=== PATIENT | female | born 2000 | race Two or more races ===

== ENCOUNTER 2024-08-28 21:37 | Inpatient (IN) | payer MEDICAID, SELFPAY ==
[2024-08-28] VITALS (20 sets, daily range): BP systolic 122–137; BP diastolic 71–86; PULSE 72–92; RESP 16–99; TEMP 36.9; O2SAT 94–99; BMI 34.4
[2024-08-29] VITALS (121 sets, daily range): BP systolic 92–172; BP diastolic 55–100; PULSE 57–87; RESP 14–18; TEMP 36.8–37.2; O2SAT 91–100
--- NOTE | 2024-08-29 00:06 | XR_ITS ---
Examination: age limited TECHNIQUE: Limited transabdominal sonographic images pelvis Date and time: August 29, 2024, 0027 hours INDICATIONS: Unknown presentation. FINDINGS: Viable uterine gestation cephalic presentation. spine maternal left. Cardiac motion 135 BPM. IMPRESSION: Viable intrauterine gestation cephalic presentation
[2024-08-29 00:07] LABS: Basophils # (Auto) 0.0 Thou/mm3 (0.0-0.2); Basophils % (Auto) 0 % (0-2.5); Eosinophils # (Auto) 0.0 Thou/mm3 (0.0-0.5); Eosinophils % (Auto) 0 % (0-10); Hematocrit 34.2 % (36.0-46.0); Hemoglobin 12.1 g/dL (12.0-16.0); Immature Granulocytes Auto 0.07 Thou/mm3 (0.00-0.00); Lymphocytes # (Auto) 1.9 Thou/mm3 (1.0-4.8); Lymphocytes % (Auto) 20 % (10-50); Mean Corpuscular HGB Conc 35.4 g/dl (31.0-37.0); Mean Corpuscular Hemoglobin 30.0 pg (25.0-35.0); Mean Corpuscular Volume 85 fL (80-100); Monocytes # (Auto) 0.6 Thou/mm3 (0.0-0.8); Monocytes % (Auto) 6 % (0-12); Neutrophils # (Auto) 6.8 Thou/mm3 (1.8-7.7); Neutrophils % (Auto) 72 % (37-80); Nucleated Red Blood Cell # 0.00 Thou/mm3 (0.00-0.00); Nucleated Red Blood Cell % 0 /100 WBC (0); Platelet Count 227 Thou/mm3 (140-440); RDW Standard Deviation 41.8 fL (36.4-46.3); Red Blood Count 4.03 Miln/mm3 (4.00-5.20); White Blood Count 9.4 Thou/mm3 (3.6-11.0)
[2024-08-29] MEDS: fentaNYL CIT INJ 50 mCg/ML AMP 2ML 100 MCG IVP (00:27)
[2024-08-29 01:18] LABS: Syphilis Nonreactive (Nonreactive)
--- NOTE | 2024-08-29 01:31 | PRELIM_ITS ---
Obstetric ultrasound with Doppler. August 29, 2024 at 0027 hours Clinical history: presentation. Comparison: None. Findings: There is a gravid uterus with a live fetus in cephalic with spine to the maternal left presentation. The placenta is anterior in location. cardiac activity is present at a heart rate of 135 beats per minute. Impression: Gravid uterus with a single live fetus in cephalic with spine to the maternal left presentation. Report Electronically Signed By: Tarik Tracy 08/29/2024 1:31:25 AM [EST]
--- NOTE | 2024-08-29 02:00 | PD.LDHP ---
Documentation for date of: 08/29/24 OB Labor/Induct. HPI History of Present Illness Chief complaint: 24 y/o 39w 1d presents to L&D at 5 cm in labor : 2 Para: 1 Term pregnancies: 1 pregnancies: 0 Living children: 1 History of Abortions: Spontaneous and Elective: 0 History of Vaginal deliveries: 1 History of sections: No History of : No [place]: 09/04/24 Gestational Age (weeks): 39 Gestational Age (days): 1 History of present illness: 24 y/o 39w 1d presents to L&D at 5 cm/70/-2 vertex with spontaneous rupture of membranes. GBS is neg. has been uncomplicated. EFW 3400g History of Present Dating criteria: LMP confirmed by 1st trimester US Adequate Care: Yes Ultrasounds: normal 1st trimester US and normal mid trimester US Obstetrical complications: none Medical complications: none Labs Maternal Blood Type: A Pos Labs: Positive: Rubella Titre, Negative: RPR, Hepatitis B, HIV, Chlamydia, Gonorrhea and Group Beta Strep and Unknown: Herpes Type 1, Herpes Type 2 and Covid-19 Review of Systems Review of Systems Systems Reviewed: All systems reviewed, normal except as documented Past Medical History Surgical History SURGICAL: Negative Section Meds Home Medications and Allergies Home Medications ?Medication ?Instructions ?Recorded ?Confirmed ?Type vitamin#30 30 mg iron-10 1 cap PO QDAY 08/28/24 08/28/24 History mg iron-folic acid 1 mg-omg3 capsule Allergies Allergy/AdvReac Type Severity Reaction Status Date / Time No Known Allergies Allergy Verified 08/28/24 22:32 OB Exam Physical Exam Vital signs: Temp Pulse Resp BP Pulse Ox 98.6 F 72 18 136/76 H 99 08/29/24 04:10 08/29/24 08:39 08/29/24 04:10 08/29/24 08:39 08/29/24 08:29 Constitutional Constitutional: moderate distress (Secondary to painful contractions) Routine HEENT Exam Head: Present normocephalic and atraumatic Eye: Present EOMI, PERRL and normal accommodation ENT: Present mucous membranes moist Routine Neck Exam Neck: Present supple, full ROM and trachea midline Routine Respiratory Exam Respiratory: Absent respiratory distress Routine Cardiovascular Exam Cardiovascular: Present RRR Routine Abdominal Exam Abdominal: Present soft Comments: Gravid uterus EFW 3400 g Routine Exam External: Present normal urethra appearance; Absent lesions or lacerations Detailed Labor and Delivery Exam Dilation (cm): 5 Effacement (%): 70 Cervix position: posterior station: -2 Consistency: soft Presentation: Vertex Membranes: ruptured Amniotic fluid: clear Baseline heart rate: 130 monitor accelerations: 15x15 monitor decelerations: None superintendent [employer] variability: Moderate (11-25) Contraction frequency (min): 2-4 Routine Extremities Exam Extremities: Present full ROM Routine Back/Spine/Pelvis Exam Back/Spine: Present full ROM Routine Skin Exam Skin: Present intact, dry and warm Routine Neurological Exam Neurological: Present alert, oriented X3 and CN II-XII intact Routine Psychiatric Exam Psychiatric: Present normal affect and normal thought process OB Results Labs 08/28/24 23:30 Labs: Short CBC 08/28/24 Range/Units 23:30 WBC 9.4 (3.6-11.0) Thou/mm3 Hgb 12.1 (12.0-16.0) g/dL Hct 34.2 L (36.0-46.0) % Plt Count 227 (140-440) Thou/mm3 OB Assessment & Plan Assessment and Plan (1) Normal labor: Status: Acute (2) with 39 completed weeks gestation: Status: Acute Additional Plan Induction method: none Plan: anticipate NVD and consult MD morton Additional Plan Comment: Routine admit orders Consult anesthesia for an epidural Continuous EFM
[2024-08-29] MEDS: OXYTOCIN in NS 20 units 20 UNIT/1,000 ML BAG 125 UNIT IV (08:45)
[2024-08-29] MEDS: BENZO/LANO/ALOE (Dermoplast) 60 GM CAN 1 SPRAY TOP (08:46)
[2024-08-29] MEDS: MINERAL OIL 30 ML UDC TOP (08:46)
[2024-08-29] MEDS: IBUPROFEN TAB 400 MG TABLET 800 MG PO ×2 (08:47→16:18)
--- NOTE | 2024-08-29 08:57 | PD.LDDELS ---
Data ([facility]) Data Hx Section: No Maternal Blood Type: A Pos Rubella Titre: Positive RPR: Non-reactive Labs: Negative: RPR, Hepatitis B, HIV, Chlamydia, Gonorrhea and Group Beta Strep and Unknown: Herpes Type 1 and Herpes Type 2 : 2 Para: 1 Term: 1 : 0 Livin Abortions: Spontaneous & Theraputic: 0 Delivery Data ([facility]) Labor Data Initiation of labor: Spontaneous Induction/Augmentation Agent: None ROM date: 08/29/24 ROM time: 06:24 Amniotic membrane rupture type: Spontaneous Amniotic fluid description: Clear Delivery Data EDC: 09/04/24 EDC calculated by:: LMP/early US confirmation Onset of labor date: 08/29/24 Onset of labor time: 02:25 Complete dilation date: 08/29/24 Complete dilation time: 08:10 [place] delivery date: 08/29/24 [place] delivery time: 08:35 Gestational age (weeks): 39 Gestational age (days): 0 Placenta delivery date: 08/29/24 Placenta delivery time: 08:45 Stage 1 total time: Labor - Stage 1 Duration 5 hours and 45 minutes Delivered by: Charlotte Mims Delivery nurse: Beth Jorge RN [place] nurse: Ivette Cardona RN Account Clerk at delivery: No Support person(s) at delivery: FOB Other staff at delivery: Codie Cho RN Delivery Method Delivery method: Normal Vaginal Delivery Presentation: Vertex position: OA Anesthesia Type Anesthesia Type: Epidural Delivery Room Medications Delivery room medications: Pitocin 20 u IV and other (TXA x1) Placenta Placenta delivery description: Spontaneous Cord blood sent to lab: Yes cord blood collection: Cord Blood Type Episiotomy Episiotomy description: None EBL Estimated blood loss (ml): 150 Umbilical Cord cord description: 3 Vessels Additional Procedures Patient was completed earlier this morning. After 3 pushes had an of a viable male . 's anterior shoulder delivered with gentle downward traction and subsequent delivered the posterior shoulder and the body without complications. placed on mother's abdomen. Vigorous cry upon delivery. Cord was allowed to pulsate for 2 minutes before it was clamped and then cut by FOB. Cord blood obtained. Three-vessel cord noted. Placenta expelled spontaneously and intact. No lacerations noted. Perineum intact. Excellent hemostasis achieved after vigorous fundal massage and removal of clots from the posterior fornix. EBL 150. Sponge and needle count correct. Mother and baby stable, [id number] and bonding in LDR. Data ([place]) [place] Data order: 1 [place]'s gender: Male weight (gms): 3425 g Weight (pounds): 7 lbs and 8.8 ozs 1 minute: 9 5 minutes: 9
[2024-08-29] MEDS: TRANEXAMIC ACID 1,000 MG IVPB 1,000 MG/100 ML BAG 200 MG IV (09:20)
[2024-08-29] MEDS: DOCUSATE SOD 100 MG CAPSULE PO (11:58)
[2024-08-29 15:19] LABS: Basophils # (Auto) 0.0 Thou/mm3 (0.0-0.2); Basophils % (Auto) 0 % (0-2.5); Eosinophils # (Auto) 0.0 Thou/mm3 (0.0-0.5); Eosinophils % (Auto) 0 % (0-10); Hematocrit 33.7 % (36.0-46.0); Hemoglobin 11.7 g/dL (12.0-16.0); Immature Granulocytes Auto 0.07 Thou/mm3 (0.00-0.00); Lymphocytes # (Auto) 1.2 Thou/mm3 (1.0-4.8); Lymphocytes % (Auto) 10 % (10-50); Mean Corpuscular HGB Conc 34.7 g/dl (31.0-37.0); Mean Corpuscular Hemoglobin 30.5 pg (25.0-35.0); Mean Corpuscular Volume 88 fL (80-100); Monocytes # (Auto) 0.8 Thou/mm3 (0.0-0.8); Monocytes % (Auto) 7 % (0-12); Neutrophils # (Auto) 9.9 Thou/mm3 (1.8-7.7); Neutrophils % (Auto) 82 % (37-80); Nucleated Red Blood Cell # 0.00 Thou/mm3 (0.00-0.00); Nucleated Red Blood Cell % 0 /100 WBC (0); Platelet Count 184 Thou/mm3 (140-440); RDW Standard Deviation 42.9 fL (36.4-46.3); Red Blood Count 3.84 Miln/mm3 (4.00-5.20); White Blood Count 12.0 Thou/mm3 (3.6-11.0)
[2024-08-30] MEDS: IBUPROFEN TAB 400 MG TABLET 800 MG PO (03:23)
[2024-08-30 03:42] VITALS: BP 119/77; PULSE 68; RESP 16; TEMP 36.9; O2SAT 97
--- NOTE | 2024-08-30 07:12 | ESDS_ITS ---
DS: Providers Provider Date of admission: 08/28/24 23:49 Primary care physician: Physician No Primary/Family Admitting Provider: Jm Franco MD Attending Provider on Admission: Jm Franco MD Attending Provider on DC: Charlotte Mims CNM Discharging Provider: Charlotte Mims CNM Anticipated date of discharge: 08/30/24 DS: Diagnosis Discharge Diagnosis (1) Normal spontaneous vaginal delivery: Status: Acute (2) Encounter for care of lactating mother: Status: Acute (3) Normal labor: Status: Acute (4) with 39 completed weeks gestation: Status: Acute Problem List Completed Was Problem List Reviewed/Reconciled?: Yes Summary/Hosp Course Brief History: 24 y/o 39w 1d presents to L&D at 5 cm/70/-2 vertex with spontaneous rupture of membranes. GBS is neg. has been uncomplicated. EFW 3400g. 08/29/24: Patient was completed earlier this morning. After 3 pushes had an of a viable male infant. Infant's anterior shoulder delivered with gentle downward traction and subsequent delivered the posterior shoulder and the body without complications. Infant placed on mother's abdomen. Vigorous cry upon delivery. Cord was allowed to pulsate for 2 minutes before it was clamped and then cut by FOB. Cord blood obtained. Three-vessel cord noted. Placenta expelled spontaneously and intact. No lacerations noted. Perineum intact. Excellent hemostasis achieved after vigorous fundal massage and removal of clots from the posterior fornix. EBL 150. Sponge and needle count correct. Mother and baby stable, [id number] and bonding in LDR. 08/30/24: day 1. Patient is stable and afebrile doing well. Denies dizziness shortness of breath. Ambulating to the bathroom voiding with no problems passing gas. Uterus is nontender fundus firm minimal lochia. Discharge instructions given patient to follow-up with Charlotte Mims CNM in 3 weeks Peripartum Data Delivery Method: Normal Vaginal Delivery Episiotomy Description: None Laceration Description: no complications: none [place] 1: Gender: Male Disposition of : home Status at Discharge Cognitive/behavioral status at discharge: Alert and oriented x 3 Functional status at discharge: independent ambulation Overall status at discharge: patient is progressing back to baseline Time Spent with Patient Time attestation: Total time spent providing and/or coordinating discharge services: Time spent: Greater than 30 minutes Exam Vital Signs Temp Pulse Resp BP Pulse Ox 98.6 F 73 18 127/55 L 99 08/29/24 04:10 08/29/24 08:54 08/29/24 04:10 08/29/24 08:54 08/29/24 08:29 Constitutional Constitutional: no acute distress Routine HEENT Exam Head: Present normocephalic and atraumatic Eye: Present EOMI, PERRL and normal accommodation ENT: Present mucous membranes moist Routine Neck Exam Neck: Present supple, full ROM and trachea midline Routine Respiratory Exam Respiratory: Present chest non-tender, lungs clear, normal breath sounds and no resp distress Routine Cardiovascular Exam Cardiovascular: Present RRR Routine Abdominal Exam Abdominal: Present soft and normoactive bowel sounds; Absent tenderness or distended Comments: Uterus nontender Fundus firm Routine Exam Patient deferred: external exam Comments: Minimal lochia Routine Extremities Exam Extremities: Present full ROM Routine Back/Spine/Pelvis Exam Back/Spine: Present full ROM Routine Skin Exam Skin: Present intact, dry and warm Routine Neurological Exam Neurological: Present alert, oriented X3 and CN II-XII intact Routine Psychiatric Exam Psychiatric: Present normal affect and normal thought process Discharge Plan Plan Patient Disposition: HOME (Self Care) Patient condition on transfer: Stable Prescriptions/Referrals Prescriptions/Med Rec: New docusate sodium [Colace] 100 mg capsule 100 mg PO BID Qty: 60 0RF ibuprofen 600 mg tablet 600 mg PO Q6H PRN (Reason: pain) Qty: 90 0RF lanolin 50 % ointment 1 applic topical TID PRN (Reason: skin irritation) Qty: 15 0RF Continued PNV #[id number] 30 mg iron-10 mg iron-1 mg capsule 1 cap PO QDAY Referrals: No Primary/Family,Physician [Primary Care Provider] - Patient/Caregiver Discharge Instructions Meds to Beds: No Discharge Activity: activity as tolerated Other Discharge Activity Instructions:: Follow-up with Charlotte Mims CNM in 3 weeks Education Materials: After a Vaginal , After Delivery Concerns, : Caring for Yourself Print Language: Serbian Stand Alone Forms: Michaela Award Info., Patient Portal Info Letter Discharge Order Discharge Orders: Discharge (Routine); Ordered 08/30/24 Ordered By: Charlotte Mims Planned Discharge Date 08/30/24
[2024-08-30 07:55] VITALS: BP 117/71; PULSE 74; RESP 14; TEMP 36.9; O2SAT 98
[2024-08-30] MEDS: DOCUSATE SOD 100 MG CAPSULE PO (08:02)
== END 2024-08-30 13:00 | disposition home or self-care (01) | DRG 560 ==
LOC: S4SX 08-29 09:05 → S4NX 08-29 11:38
PROVIDERS: Nurse Practitioner Women's Health; Admitting Provider Student in an Organized Health Care Education/Training Program; Visit Provider Obstetrics & Gynecology
DX: O80 Encounter for full-term uncomplicated delivery (principal); Z37.0 Single live birth; Z3A.39 39 weeks gestation of pregnancy
CPT/HCPCS: 36415; 59025; 59409; 76815; 85025; 86780; 86850; 86900; 86901; 94762; J2590; J2795; J3010; J3490; A9270